=== PATIENT | female | born 1990 | race Caucasian/White ===

== ENCOUNTER 2016-10-02 02:23 | Inpatient (IN) ==
[2016-10-02] MEDS ORDERED: MEPERIDINE 50 MG/1 ML VIAL IV PRN (02:35)
[2016-10-02] MEDS ORDERED: ONDANSETRON 4 MG/2 ML VIAL IV PRN ×2 (02:35→19:12)
[2016-10-02] MEDS ORDERED: BUTORPHANOL 2 MG/ML VIAL IV PRN (02:35)
[2016-10-02] MEDS ORDERED: ACETAMINOPHEN 325 MG TABLET PO PRN ×2 (02:35→19:12)
[2016-10-02] MEDS ORDERED: AMPICILLIN INJ 2,000 MG in SODIUM CHLORIDE 0.9% 100 ML IV ONE (02:48)
[2016-10-02] MEDS: LACTATED RINGERS 1,000 ML IV SCH ×3 (03:00→10:04)
[2016-10-02 03:08] LABS: Basophils % 0.2 % (0.0-0.8); Eosinophils # 0.1 10*3/uL (0.0-0.87); Eosinophils % 0.9 % (0.00-10.9); Hematocrit 28.3 VOL% (35.7-47.0); Hemoglobin 9.7 GM/DL (12.0-16.0); Immature Granulocytes % 0.9 %; Immature Granulocytes Absolute 0.07 #; Lymphocytes # 2.2 10*3/uL (1.4-4.0); Lymphocytes % 27.5 % (21.3-54.2); Mean Corpuscular HGB Conc 34.3 GM/DL (32-36); Mean Corpuscular Hemoglobin 29 PG (27-34); Mean Corpuscular Volume 83.2 FL (87-102); Monocytes # 0.6 10*3/uL (0.11-0.8); Monocytes % 6.8 % (1.7-12.7); Neutrophils # 5.1 10*3/uL (1.4-7.4); Neutrophils % 63.7 % (38.7-73.9); Platelet Count 190 T/CUMM (130-400); Red Cell Distribution Width 12.1 % (9.3-17.3)
[2016-10-02] MEDS ORDERED: PROMETHAZINE 25 MG/1 ML VIAL IM PRN (05:21)
[2016-10-02] MEDS ORDERED: ePHEDrine 50 MG/ML AMP IV PRN (05:21)
[2016-10-02] MEDS ORDERED: diphenhydrAMINE 50 MG/1 ML VIAL IV PRN ×2 (05:21)
[2016-10-02] MEDS ORDERED: hydrOXYzine HCL 25 MG/1 ML VIAL IM PRN (05:21)
[2016-10-02] MEDS ORDERED: FAMOTIDINE 20 MG/2 ML VIAL IV PRN (05:23)
[2016-10-02] MEDS ORDERED: CITRIC ACID/SODIUM CITRATE 30 ML UDCUP PO PRN (05:23)
[2016-10-02] MEDS ORDERED: fentaNYL 2 MCG/ROPIV 0.2% EPID 150 ML EPIDURAL SCH (06:30)
[2016-10-02] MEDS ORDERED: AMPICILLIN INJ 1,000 MG in SODIUM CHLORIDE 0.9% 100 ML IV SCH (07:00)
[2016-10-02 09:51] LABS: Apearance,Urine CLEAR (Clear); Bilirubin,Urine Negative (Negative); Blood, Urine Negative (Negative); Glucose,Urine (UA) Negative (Negative); Ketones,Urine 20 mg/dL (Negative); Mucus,Urine Occasional /LPF (Occasional); Nitrite,Urine Negative (Negative); Protein,Urine Negative; RBC,Urine 1 /HPF (0-4); Squamous Epithelial Cell,Urine Occasional /HPF (0-10); Urine Color Yellow (Yellow); Urine Specific Gravity 1.011 (1.001-1.035); Urine Urobilinogen < 2.0 EU/DL (0.2-1.0); WBC,Urine 1 /HPF (0-6)
[2016-10-02] MEDS ORDERED: OXYTOCIN/LR 20 UNIT/1,000 ML BAG IV SCH (11:00)
[2016-10-02] MEDS ORDERED: miSOPROStol 200 MCG TABLET ONE (18:54)
[2016-10-02] MEDS ORDERED: LIDOCAINE 1% 50 ML VIAL ONE (18:54)
[2016-10-02] MEDS ORDERED: oxyCODONE/ACETAMINOPHEN 5-325 MG TABLET PO PRN ×2 (19:12)
[2016-10-02] MEDS ORDERED: BENZOCAINE 20%/MENTHOL 0.5% SPRAY 56 GM CAN TOP PRN (19:12)
[2016-10-02] MEDS ORDERED: WITCH HAZEL PADS 100/JAR TOP PRN (19:12)
[2016-10-02] MEDS ORDERED: IBUPROFEN 800 MG TABLET PO PRN (19:12)
[2016-10-02] MEDS ORDERED: OXYTOCIN/LR 20 UNIT/1,000 ML BAG IV ONE (19:12)
[2016-10-02] MEDS ORDERED: MEASLES/MUMPS/RUBELLA VACCINE 0.5 ML VIAL SUBCUT ONE (19:12)
[2016-10-02] MEDS ORDERED: HYDROCORTISONE 2.5% RECTAL CREAM 30 GM TUBE TOP PRN (19:12)
[2016-10-02] MEDS ORDERED: RHO(D) IMMUNE GLOBULIN 300 MCG SYRINGE IM ONE (19:12)
[2016-10-02] MEDS ORDERED: DIPH/TET/ACEL PERT BOOSTER VACCINE 0.5 ML VIAL IM ONE (19:12)
[2016-10-02] MEDS ORDERED: BISACODYL 10 MG SUPP RECTAL PRN (19:12)
[2016-10-02] MEDS ORDERED: LANOLIN 50% CREAM 0.3 OZ TUBE TOP PRN (19:12)
--- NOTE | 2016-10-02 19:16 | History and Physical Update ---
History and Physical Update - Dictation Physical: refer to scanned H&P - Physical Exam Mental Status: alert and oriented Heart: regular rate and rhythm Lung: clear to auscultation Abdomen: within normal limits Vitals: within normal limits History and Physical Changes: 36weeks with SROM very early this morning. No prior complications. GBS negative.
--- NOTE | 2016-10-02 19:20 | Operative Note ---
Date of procedure: 10/02/16 Pre-op diagnosis: 36 wks, PROM Post-op diagnosis: same Procedure: Vacuum-assisted vaginal delivery Patient progressed to complete and pushing with labor epidural and Pitocin augmentation and delivered a viable female over intact perineum and a 1st degree left distal vaginal laceration that was hemostatic. Vacuum was applied to vertex p discussion of BRCA due to maternal discomfort and prolonged bradycardia. Vacuum was applied through one push and head was easily delivered with minimal to moderate traction. Tight nuchal cord had to be clamped and cut then the baby was immediately delivered. Baby was taken directly to the [facility] to care of personnel. Cord blood was collected and placenta was delivered intact. Fundus is firm. Estimated blood loss 300 mL. Complications none. Patient is stable and the baby is stable. Anesthesia: epidural Surgeon / Physician: Ev Taylor Estimated blood loss: other (300cc) Specimens: other (placenta to path; cord blood to lab) Condition: stable Disposition: no change Results - Labs CBC & BMP: 10/02/16 02:54 Discharge Plan - Discharge Medications No Action Sertraline [Zoloft] 1 tablet PO DAILY Levothyroxine Tab [Synthroid Tab] 1 tablet PO DAILY No122/Iron/Folic Acid [ Multi Tablet] 1 tablet PO DAILY Cetirizine HCl [ZyrTEC Cap] 1 tablet PO DAILY - Follow Up or Referral - Forms/Instructions
--- NOTE | 2016-10-02 19:41 | Anesthesia Post-Op ---
Anesthesia Post OP - Post Ansesthetic Evaluation Patient seen in post op: Yes Resp: within normal limits CV: within normal limits Mental: within normal limits Temp: within normal limits [id number]: within normal limits Nausea and Vomiting: within normal limits Pain: within normal limits
[2016-10-03 05:03] LABS: Basophils % 0.2 % (0.0-0.8); Eosinophils % 0.1 % (0.00-10.9); Hematocrit 26.6 VOL% (35.7-47.0); Immature Granulocytes % 0.6 %; Immature Granulocytes Absolute 0.08 #; Lymphocytes # 2.3 10*3/uL (1.4-4.0); Lymphocytes % 16.3 % (21.3-54.2); Mean Corpuscular HGB Conc 33.8 GM/DL (32-36); Mean Corpuscular Hemoglobin 29 PG (27-34); Mean Corpuscular Volume 84.7 FL (87-102); Monocytes % 7.2 % (1.7-12.7); Neutrophils # 10.8 10*3/uL (1.4-7.4); Neutrophils % 75.6 % (38.7-73.9); Platelet Count 186 T/CUMM (130-400); Red Blood Count 3.14 MC/CUMM (3.8-5.5); Red Cell Distribution Width 12.2 % (9.3-17.3); White Blood Count 14.3 T/CUMM (4-12)
--- NOTE | 2016-10-03 08:16 | OB/GYN Progress Note ---
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 - Constitutional Vitals: Vital Signs Temp Pulse Resp BP Pulse Ox 10/03/16 07:19 97.4 F L 92 H 20 115/61 98 10/03/16 06:00 18 10/03/16 04:00 97.6 F 78 18 123/51 97 10/03/16 02:00 18 10/03/16 00:13 97.6 F 88 20 127/72 98 10/02/16 23:30 98.5 F 98 H 18 128/65 98 10/02/16 22:30 98 H 20 125/65 10/02/16 22:00 88 20 143/78 10/02/16 21:30 98.3 F 79 20 138/71 97 General appearance: normal weight, no acute distress - Head Head exam: Present: normal inspection, normocephalic - Eye Eye exam: Present: EOMI - Respiratory Respiratory exam: Present: clear to auscultation bilaterally - Cardiovascular Cardiovascular exam: Present: regular rate and rhythm - GI/Abdominal GI/Abdominal exam: Present: soft (fundus firm, nontender) - Extremities Exam Extremities exam: Present: normal inspection - Neurological Exam Neurological exam: Present: alert, oriented X3 - Psychiatric Psychiatric exam: Present: normal affect, normal mood - Skin Skin exam: Present: normal color, warm Results - Labs CBC & BMP: 10/03/16 04:47 Lab Results: I have reviewed the past 24 hour labs
[2016-10-03] MEDS: DOCUSATE SODIUM 100 MG CAPSULE PO SCH ×2 (09:24→22:26)
[2016-10-03] MEDS ORDERED: RHO(D) IMMUNE GLOBULIN 300 MCG SYRINGE IM ONE (15:45)
[2016-10-04 07:44] VITALS: BP 118/50
[2016-10-04] MEDS: DOCUSATE SODIUM 100 MG CAPSULE PO SCH (09:13)
--- NOTE | 2016-10-07 12:19 | Pathology Report from [facility] ---
[facility] ACCESSION # : [id number] PATIENT NAME : Beba James ORDERING DR : FERNANDO MILLER DO CLINICAL HX: IUP 36 weeks - SRM - tachycardia - Nuchal cord x 2 POST-OP DX: Same SPECIMEN INFO: Placenta GROSS DESCRIPTION: The specimen is received in formalin labeled with the patients name BEBA JAMES and consists of a 427 gram placenta which measures 17.0 x 17.0 x 2.2 cm. membranes are pink-pride and translucent. The umbilical cord measures 30.0 cm, contains three vessels and is inserted 3.0 cm from the placental margin. The surface is blue-burkett and intact. The maternal surface is hemorrhagic and mildly disrupted with a few scattered calcifications seen. Sectioning reveals no gross abnormalities. Sections submitted: A membranes and cord, B and maternal surfaces. DIAGNOSIS FOR BEBA JAMES: PLACENTA, 36 WEEKS, VAGINAL DELIVERY: Mature placenta, 427 grams. Unremarkable membranes. Trivascular umbilical cord, 30 cm in length. COLLECTED DATE: 10/04/2016 [facility] REPORT DATE: 10/07/2016 ELECTRONICALLY SIGNED BY: Charlene Rodriguez M.D. 10/07/2016 - 11:01:06 SANDOVAL
== END 2016-10-04 13:45 | disposition home or self-care (01) | DRG 775 ==
LOC: N.LDOUT 02:23 → N.LD 02:29 → N.OB 21:11
PROVIDERS: ADMIT Obstetrics & Gynecology; ATTEND Obstetrics & Gynecology

== ENCOUNTER 2016-10-06 21:48 | Inpatient (IN) ==
[2016-10-06] MEDS ORDERED: ALBUTEROL/IPRATROPIUM 3 ML NEB RESP TX STA (22:54)
[2016-10-06] MEDS ORDERED: MORPHINE 2 MG/1 ML SYRINGE IV STA (22:54)
[2016-10-06] MEDS ORDERED: methylPREDNISolone SOD SUC 125 MG/2 ML VIAL IV STA (22:54)
[2016-10-06] MEDS ORDERED: ONDANSETRON 4 MG/2 ML VIAL IV STA (22:54)
[2016-10-06] MEDS ORDERED: FUROSEMIDE 100 MG/10 ML VIAL IV STA (22:54)
[2016-10-06] MEDS ORDERED: ASPIRIN 325 MG TABLET PO STA (22:54)
[2016-10-06 23:00] LABS: Basophils % 0.2 % (0.0-0.8); Eosinophils # 0.3 10*3/uL (0.0-0.87); Eosinophils % 3.1 % (0.00-10.9); Hematocrit 26.7 VOL% (35.7-47.0); Hemoglobin 8.9 GM/DL (12.0-16.0); Immature Granulocytes % 0.8 %; Immature Granulocytes Absolute 0.07 #; Lymphocytes # 1.7 10*3/uL (1.4-4.0); Lymphocytes % 20.4 % (21.3-54.2); Mean Corpuscular HGB Conc 33.3 GM/DL (32-36); Mean Corpuscular Hemoglobin 28 PG (27-34); Mean Corpuscular Volume 84.8 FL (87-102); Mean Platelet Volume 9.5 FL (9.6-12.0); Monocytes # 0.6 10*3/uL (0.11-0.8); Monocytes % 7.2 % (1.7-12.7); Neutrophils # 5.6 10*3/uL (1.4-7.4); Neutrophils % 68.3 % (38.7-73.9); Platelet Count 242 T/CUMM (130-400); Red Blood Count 3.15 MC/CUMM (3.8-5.5); Red Cell Distribution Width 12.4 % (9.3-17.3); White Blood Count 8.3 T/CUMM (4-12)
[2016-10-06 23:08] LABS: D-Dimer 2.2 MG/L FEU; PT Patient Result 10.2 SECS
[2016-10-06] MEDS ORDERED: FUROSEMIDE 40 MG/4 ML VIAL ONE (23:08)
[2016-10-06] MEDS ORDERED: ONDANSETRON 4 MG/2 ML VIAL ONE (23:08)
[2016-10-06] MEDS ORDERED: MORPHINE 2 MG/1 ML SYRINGE ONE (23:09)
[2016-10-06] MEDS ORDERED: ASPIRIN 325 MG TABLET ONE (23:09)
[2016-10-06] MEDS ORDERED: FUROSEMIDE 20 MG/2 ML VIAL ONE (23:09)
[2016-10-06] MEDS ORDERED: methylPREDNISolone SOD SUC 125 MG/2 ML VIAL ONE (23:09)
[2016-10-06 23:34] LABS: Alanine Aminotransferase 33 U/L (13-56); Albumin 2.4 G/DL (3.4-5.0); Alkaline Phosphatase 74 U/L (45-117); Aspartate Amino Transferase 32 U/L (0-37); Bilirubin,Total < 0.39 MG/DL (0.2-1.0); Blood Urea Nitrogen 6 MG/DL (7-18); Calcium 8.3 MG/DL (8.5-10.1); Glucose 81 MG/DL (74-106); Magnesium 1.6 MG/DL (1.8-2.4); Osmolality,Calculated 277.3 MOS/KG (273-304); Potassium 3.4 MMOL/L (3.5-5.1); Sodium 141 MMOL/L (136-145); Total Protein 5.5 G/DL (6.4-8.3); Troponin I Only 0.018 NG/ML (0.00-0.045)
[2016-10-06 23:34] LABS: ABG Base Excess -1.6 MMOL/L (-2.5-2.5); ABG Oxygen Saturation 97.4 % (95-100); ABG PCO2 24.1 MM HG (35-48); ABG PH 7.537 (7.35-7.45); ABG PO2 103.8 MM HG (80-95); ABG TCO2 20.7 MMOL/L (23-27)
[2016-10-06] MEDS ORDERED: MAGNESIUM SULF RIDER 2 GM in PREMIX 1 EACH IV STA (23:36)
[2016-10-06] MEDS ORDERED: MAGNESIUM SULF RIDER 50 ML IV ONE (23:46)
[2016-10-07 00:09] LABS: Apearance,Urine Slightly Hazy (Clear); Bacteria,Urine Occasional /HPF (Few); Bilirubin,Urine Negative (Negative); Blood, Urine Large mg/dL (Negative); Glucose,Urine (UA) Negative (Negative); Hyaline Casts,Urine 3 /LPF (0-3); Ketones,Urine Negative (Negative); Mucus,Urine Occasional /LPF (Occasional); Nitrite,Urine Negative (Negative); Protein,Urine Negative; RBC,Urine 134 /HPF (0-4); Squamous Epithelial Cell,Urine Occasional /HPF (0-10); Urine Color Straw (Yellow); Urine Specific Gravity 1.004 (1.001-1.035); Urine Urobilinogen < 2.0 EU/DL (0.2-1.0); WBC,Urine 67 /HPF (0-6)
[2016-10-07] MEDS ORDERED: POTASSIUM CHLORIDE 20 MEQ TABLET PO STA (00:40)
--- NOTE | 2016-10-07 00:49 | Emergency Department Note ---
Brijesh Ziegler Brittany, am scribing for, and in the presence of, Anant Berger MD 23:01. Celine Ziegler Charles R, MD, personally performed the services described in this documentation, ascribed by Sherine Coley in my presence, and it is both accurate and complete . Arrival - Arrival Chief Complaint: Shortness of Breath Stated Complaint: SOB/CP/HAD 4 DAYS ED Nursing Triage Note: C/O SOB WITH COUGH WITH ONSET 2-3 DAYS AGO. PT IS 4 DAYS POST . PT HAS NOT CONTACTED DR MILLER. Mode of Arrival: Ambulatory Limitations: No Limitations Source: Patient, Family Time Seen by Provider: 10/06/16 22:12 - History of Present Illness HPI Narrative: This is a 26 y/o white female,who presents to the ED with c/o CP and SOB which started 3 days ago. She states she is 4 days post-. She reports the vaginal delivery was normal. Pt reports the chest pain and SOB started 1 day after giving . She notes a cough. Pt has no other complaints/pain in the ED at this time. Pt has a PMHx of anxiety and thyroid disorder. Pt has had a tonilectomy. Pt has a afmily medical Hx of diabetes, heart disease, and HTN. Pt denies a social Hx. Onset (ago): day(s) (Started 3 days ago) Consistency: constant Severity: moderate Date of Last Menstrual Period: 4 DAYS POST Allergies/Adverse Reactions: Allergies Allergy/AdvReac Type Severity Reaction Status Date / Time No Known Allergies Allergy Verified 10/02/16 02:35 Home Medications: Home Medications Medication Instructions Recorded Confirmed Type Cetirizine HCl [ZyrTEC Cap] 1 tablet PO DAILY 10/02/16 10/02/16 History Levothyroxine Tab [Synthroid Tab] 1 tablet PO DAILY 10/02/16 10/02/16 History No122/Iron/Folic Acid 1 tablet PO DAILY 10/02/16 10/02/16 History [ Multi Tablet] Sertraline [Zoloft] 1 tablet PO DAILY 10/02/16 10/02/16 History Review of System - Review of System 12 point system: reviewed and no additional remarkable complaints except as stated - Review of System Respiratory: Present: cough Cardiovascular: Present: chest pain, dyspnea on exertion Medical,Surgical,& Family Hx - Medical History Psychological: History of: Anxiety Disorders Endocrine: History of: Thyroid Disorder Reproductive: No history of: Ectopic , Complication - Surgical History HEENT Surgeries: Surgical HX of: Tonsilectomy & Adenoidectomy Reproductive Surgeries: Patient denies;: Section - Family History Family History: Reports;: Family Diabetes (FATHER), Family Heart Disease (FATHER ), Family Hypertension (MOM) Denies;: Family Anesthesia Reaction, Family Cancer, Family Psychiatric Problems, Family Stroke - Social History Smoking Status: Never smoker Frequency of Alcohol Use: None Type of Drug Use: None Exam Vital Signs: Vital Signs Temperature 98 F 10/06/16 22:20 Pulse Rate 97 H 10/06/16 23:30 Respiratory Rate 20 10/06/16 23:30 Blood Pressure 133/83 10/06/16 22:20 O2 Sat by Pulse Oximetry 100 10/06/16 23:30 - General General appearance: alert, in no apparent distress - Head Head exam: Present: atraumatic, normocephalic, normal inspection - Eye Eye exam: Present: normal appearance, PERRL, EOMI. Absent: nystagmus, miosis, mydriasis - ENT ENT exam: Present: normal exam, normal oropharynx, mucous membranes moist, TM's normal bilaterally, normal external ear exam - Neck Neck exam: Present: normal inspection, full ROM, trachea midline. Absent: tenderness, meningismus, lymphadenopathy, thyromegaly - Chest Chest inspection: Present: normal inspection, symmetric chest wall rise. Absent : tenderness, rash, abscess - Respiratory Respiratory exam: Present: rales (Bilateral Rales at the base), wheezes ( Bilateral wheezing at the base ) - Cardiovascular Cardiovascular exam: Present: regular rate, normal rhythm, normal heart sounds. Absent: murmur, rubs, gallop, clicks, JVD - Abdominal Exam Abdominal exam: Present: soft, normal bowel sounds. Absent: distention, tenderness, guarding, rebound, rigidity - Rectal Exam Rectal exam: Present: deferred - Extremities Exam Extremities exam: Present: normal inspection, full ROM, normal capillary refill. Absent: tenderness, pedal edema, joint swelling, calf tenderness - Back Exam Back exam: Present: normal inspection, full ROM. Absent: tenderness, muscle spasm, rashes - Neurological Exam Neurological exam: Present: alert, oriented X3, CN II-XII intact. Absent: motor sensory deficit - Psychiatric Psychiatric exam: Present: normal affect, normal mood. Absent: depressed, agitated, anxious, flat affect, manic - Skin Skin exam: Present: warm, dry, intact, normal color. Absent: rash, cyanosis, diaphoresis, erythema, pallor, mottled Course - Consultations Consultation #1: Dr. Hernandez taking call for Dr. Miller will admit patient Time: 00:49 Results - Labs CBC & BMP: 10/06/16 22:24 10/06/16 22:24 - Diagnostic Findings Procedure: CT - chest: image reviewed by me, report reviewed by me (CT chest pleural effusions versus pneumonia bilaterally) Critical Care Time Critical Care Time: Yes Total Critical Care Time: 60 Disposition Clinical Impression: 4 days, Pleural effusion, Bilateral pneumonia, Acute dyspnea, Anemia Case discussed with: patient, patient's family Disposition: Still a Patient Condition: Stable Time of Disposition: 00:49
[2016-10-07] MEDS: cefTRIAXone 1,000 MG in SODIUM CHLORIDE 0.9% 100 ML IV STA ×2 (00:53→02:40)
[2016-10-07] MEDS ORDERED: cefTRIAXone 1,000 MG VIAL ONE (00:55)
[2016-10-07] MEDS ORDERED: POTASSIUM CHLORIDE 20 MEQ TABLET PO ONE (00:55)
[2016-10-07] MEDS ORDERED: IBUPROFEN 800 MG TABLET PO PRN (03:15)
[2016-10-07] MEDS ORDERED: ALBUTEROL/IPRATROPIUM 3 ML NEB RESP TX PRN (03:15)
[2016-10-07] MEDS ORDERED: SODIUM CHLORIDE 0.9% 1,000 ML IV SCH (03:15)
[2016-10-07] MEDS ORDERED: BISACODYL 10 MG SUPP RECTAL PRN (03:15)
[2016-10-07] MEDS ORDERED: MORPHINE 2 MG/1 ML SYRINGE IV PRN (03:15)
[2016-10-07] MEDS ORDERED: MAGNESIUM HYDROXIDE SUSP 30 ML UDCUP PO PRN (03:15)
[2016-10-07] MEDS ORDERED: ONDANSETRON 4 MG/2 ML VIAL IV PRN (03:15)
[2016-10-07] MEDS ORDERED: ACETAMINOPHEN 325 MG TABLET PO PRN (03:15)
--- NOTE | 2016-10-07 03:16 | EKG Report ---
Stationary ECG Study [facility] ER Test Date: 10/06/2016 10:03:32 PM Pat Name: ZEINAB JAMES Department: Room: [facility] Gender: F Cotton Tipper: Juan José : 1990 Requested by: Anant Max Order Number: [id number] Reading MD: KELLIE URIBE Intervals [place] Rate: 80 P: -8 NM: 125 QRS: 66 QRSD: 87 T: 53 QT: 364 QTc: 400 Interpretive Statements SINUS RHYTHM RSR (QR) IN V1/V2 CONSISTENT WITH RIGHT VENTRICULAR CONDUCTION DELAY Electronically Signed On 10-07-16 05:44:54 CDT by KELLIE URIBE [email or web address]
[2016-10-07 06:43] LABS: Basophils % 0.1 % (0.0-0.8); Eosinophils % 0.1 % (0.00-10.9); Hematocrit 27.9 VOL% (35.7-47.0); Hemoglobin 9.6 GM/DL (12.0-16.0); Immature Granulocytes % 2.2 %; Lymphocytes # 0.8 10*3/uL (1.4-4.0); Lymphocytes % 9.3 % (21.3-54.2); Mean Corpuscular HGB Conc 34.4 GM/DL (32-36); Mean Corpuscular Hemoglobin 29 PG (27-34); Mean Corpuscular Volume 83.3 FL (87-102); Mean Platelet Volume 9.1 FL (9.6-12.0); Monocytes # 0.2 10*3/uL (0.11-0.8); Monocytes % 1.7 % (1.7-12.7); Neutrophils # 7.8 10*3/uL (1.4-7.4); Neutrophils % 86.6 % (38.7-73.9); Platelet Count 264 T/CUMM (130-400); Red Blood Count 3.35 MC/CUMM (3.8-5.5); Red Cell Distribution Width 12.3 % (9.3-17.3)
[2016-10-07 06:56] LABS: PT Patient Result 10.5 SECS
[2016-10-07 07:15] LABS: Alanine Aminotransferase 36 U/L (13-56); Albumin 2.7 G/DL (3.4-5.0); Alkaline Phosphatase 80 U/L (45-117); Aspartate Amino Transferase 33 U/L (0-37); Bilirubin,Total < 0.39 MG/DL (0.2-1.0); Blood Urea Nitrogen 7 MG/DL (7-18); Calcium 8.6 MG/DL (8.5-10.1); Glucose 120 MG/DL (74-106); Osmolality,Calculated 277.4 MOS/KG (273-304); Potassium 3.6 MMOL/L (3.5-5.1); Sodium 140 MMOL/L (136-145); Total Protein 6.3 G/DL (6.4-8.3)
--- NOTE | 2016-10-07 07:18 | Ultrasound Report ---
History is post extremity swelling Bilateral lower extremity venous Doppler performed with grayscale, spectral Doppler, and color flow analysis performed and interpreted. No evidence of echogenic, noncompressible thrombus seen in either common femoral, superficial femoral, popliteal, or saphenous veins Impression: No evidence of DVT seen in either lower extremity. PROCEDURE INTERPRETED AT [facility] DEPARTMENT OF RADIOLOGY Final Report Signed by: Dr. Hali Christensen
[2016-10-07 07:22] LABS: Free T4 (Free Thyroxine) 1.34 NG/DL (0.76-1.46); Thyroid Stimulating Hormone 2.42 uIU/ml (0.358-3.74)
--- NOTE | 2016-10-07 07:37 | CT Report ---
History is post short of breath The cc Omni 350 utilized Axial images obtained with 2-D multiplanar reconstruction images also stored and interpreted Findings: No enlarged mediastinal or hilar nodes seen. No persistent filling defects seen in the pulmonary arteries There are small right and tiny left pleural effusions There are mild patchy bilateral groundglass pulmonary opacities Impression: 1. Mild patchy groundglass bilateral infiltrates versus edema. Amniotic fluid embolus could give a similar appearance. Clinical correlation requested The CT exam was performed using one or more of the following dose reduction techniques: Automated exposure control, adjustment of the mA and/or kV according to patient size, or use of iterative reconstruction technique. PROCEDURE INTERPRETED AT [facility] DEPARTMENT OF RADIOLOGY Final Report Signed by: Dr. Hali Christensen
--- NOTE | 2016-10-07 07:44 | XRay Report ---
Exam: XR chest 2V Indication: Shortness of breath Comparison study: None Findings: The heart, mediastinum, and bony structures are within normal limits. Diffuse mild perihilar interstitial opacities are noted bilaterally suggestive of pulmonary edema changes. No definite focal consolidation is identified. There is pneumothorax or pleural effusion identified. Impression: Prominent perihilar interstitial opacities may represent pulmonary edema changes or bilateral interstitial infiltrates. PROCEDURE INTERPRETED AT [facility] DEPARTMENT OF RADIOLOGY Final Report Signed by: Brandon Hammond
--- NOTE | 2016-10-07 08:04 | XRay Report ---
Exam: XR chest 2V Indication: Pleural effusion Shortness of breath Comparison study: Prior chest 10/06/2016 Findings: The heart, mediastinum and bony structures are stable from prior. Similar perihilar and basilar interstitial opacities with minimal peribronchial thickening is noted. There is now blunting of the right costophrenic angle with right basilar opacities slightly increased from prior. There is no pneumothorax. Impression: Increase in right basilar opacities and blunting the right costophrenic angle suspicious for atelectasis and small pleural effusion. Residual perihilar opacities are suspicious for underlying bronchitis or other viral/atypical infectious/inflammatory process. PROCEDURE INTERPRETED AT [facility] DEPARTMENT OF RADIOLOGY Final Report Signed by: Brandon Hammond
[2016-10-07] MEDS: FUROSEMIDE 40 MG/4 ML VIAL IV SCH ×2 (08:19→15:55)
[2016-10-07] MEDS: PANTOPRAZOLE 40 MG VIAL IV SCH (08:23)
[2016-10-07] MEDS: DOCUSATE SODIUM 100 MG CAPSULE PO SCH ×3 (08:31→22:02)
[2016-10-07] MEDS: ENOXAPARIN 40 MG/0.4 ML SYRINGE SUBCUT SCH (09:39)
[2016-10-07] MEDS: LEVOTHYROXINE 88 MCG TABLET PO SCH (09:41)
--- NOTE | 2016-10-07 11:15 | Pulmonology Consult Note ---
History of Present Illness Chief complaint: SOB History of present illness: Hira Del Angel, [facility], acting as scribe for Dr. Garcia Kim Mrs. Stone is a 26-year-old white female who we have been asked to see in pulmonary consultation for evaluation and treatment. The request for consultation was made by Dr. Berger. Mrs. Stone presented to [facility] emergency room last night with complaints of increased shortness of breath and chest pain which started 3 days ago. Patient is now 5 days . She had a normal vaginal delivery. In the emergency room, she reported the chest pain or shortness of breath started 1 day after giving . During her workup, CT of the chest showed mild patchy groundglass bilateral infiltrates versus edema. She was, therefore, admitted to Dr. Taylor for further evaluation and care. Patient was seen today along with her . She has had increasing shortness of breath and dyspnea on exertion as above. She denies any cardiac angina or palpitations. No dysphasia or reflux. No change in bowel or bladder habits. No TIA symptoms or syncope. She does report that recently her legs were "huge", but this is now resolved. All other systems were reviewed and were negative. Allergies: None Home medications: See list Hospital medications: See list Past medical history: Positive for anxiety, hypothyroidism, and allergic rhinitis. Surgical history: History of tonsillectomy and adenoidectomy. Again as stated above, the patient had a recent vaginal delivery that was normal. Family history: Positive for diabetes and heart disease in her father and hypertension in her mother. 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 She is . She does not use alcohol or tobacco. Chest x-ray. Done 10/07/2016. My interpretation. Increased bilateral perihilar markings most likely consistent with acute congestive heart failure. CT of the chest done 10/06/2016 showed mild patchy groundglass bilateral infiltrates versus edema. Amniotic fluid embolus can give a similar appearance. Clinical correlation requested. Doppler venograms done 10/07/2016 showed no evidence of DVT in either lower extremity. Laboratory: White count is 9000 with 86.6% segs, 9.3% lymphs, and 1.7% monos; H& H 9.6/27.9 with low to low normal indices and normal red blood cell distribution width; platelet count 264,000; INR 1.0; d-dimer 2.2; creatinine 0.60, BUN 7, sodium 140, potassium 3.6, magnesium 2.2; liver function tests within normal limits; BNP at admission 500; calcium 8.6, albumin 2.7, total protein 6.3; TSH and free T4 normal at 2.420 and 1.34 respectively; urinalysis showed large leukocytes with 67 WBCs and occasional bacteria. Urine culture is pending. ABGs done 10/06/2016 on a listed FiO2 of 28% showed a pH of 7.537, PCO2 24.1, PO2 103.8, bicarb 20.0, and oxygen saturation 97.4%. Home Medications Medication Instructions Recorded Confirmed Type Cetirizine HCl [ZyrTEC Cap] 1 tablet PO DAILY 10/02/16 10/07/16 History Levothyroxine Tab [Synthroid Tab] 1 tablet PO DAILY MDD 88 mcg 10/02/16 History Sertraline [Zoloft] 1 tablet PO DAILY 10/02/16 10/07/16 History Allergies Allergy/AdvReac Type Severity Reaction Status Date / Time No Known Allergies Allergy Verified 10/02/16 02:35 Exam (Pulmonay) H&P - Constitutional Vitals: Period Temp Pulse Resp BP Sys/Howell Pulse Ox Last 24 Hr 97 F-98.0 F 73-98 18-24 133-138/67-98 94-100 Exam: Psych: Oriented x 3; a pleasant and cooperative patient HEENT: Pupils, irises, sclera, conjunctiva, and eyelids are normal. The face is symmetrical without rash or masses. Lips, tongue, buccal mucosa, soft and hard palates, and pharynx are WNL Neck: Symmetrical. Thyroid was not palpated. Lymphatics: No submandibular, cervical, or supraclavicular adenopathy Chest: Symmetrical without wheeze, rhonchi or rales Breasts: Deferred CV: Regular without murmur, rub, or gallop Arterial: Carotids with a good upstroke. There is no bruit. Upper extremity pulses are palpable. Lower extremity pulses are palpable. Venous: Exam of the neck, upper, and lower extremities is normal Abd: No appreciable organomegaly, masses, tenderness, or bruit; Bowel sounds are positive 4; The aorta was not palpated /Rectal: Deferred Extremities: No clubbing, cyanosis, edema, or obvious DVT; note, Doppler venograms were negative Skin: No cancerous or infectious lesions of the exposed, examined skin; the perineal area was not examined M/S: Age appropriate loss of the normal curvature of the cervical, thoracic, and lumbar spine Neurological: Cranial nerves are intact, Long tract motor function is intact; Sensory exam was not done; gait was not tested. The remainder of the exam was noncontributory. Impression: #1: Acute shortness of breath most likely secondary to acute congestive heart failure. Consider other causes. #2: 5 days. Note, vaginal delivery was "normal". #3: Anemia #4: Hypomagnesemia, now corrected #5: History of anxiety #6: Hypothyroidism #7: See past history Plan: #1: I discussed the case with Dr. Taylor. The patient has no cough, no fever, no sputum production. We will continue antibiotics today, but plan on stopping them tomorrow. Neither of us feel at this time there is anything to suggest amniotic emboli. #2: Get echocardiogram. Look for cardiomyopathy. #3: Repeat chest x-ray, BMP, and BNP in the morning #4: We will consult cardiology #5: See orders We appreciate this consult and will follow along with you. Medical,Surgical,& Family Hx - Medical History Psychological: History of: Anxiety Disorders Endocrine: History of: Thyroid Disorder Reproductive: No history of: Ectopic , Complication - Surgical History HEENT Surgeries: Surgical HX of: Tonsilectomy & Adenoidectomy Patient denies: Thyroid Surgery Reproductive Surgeries: Patient denies;: Section - Family History Family History: Reports;: Family Diabetes (FATHER), Family Heart Disease (FATHER ), Family Hypertension (MOM) Denies;: Family Anesthesia Reaction, Family Cancer, Family Psychiatric Problems, Family Stroke, Additional Family History - Social History Smoking Status: Never smoker Frequency of Alcohol Use: None Type of Drug Use: None Results - Labs CBC & BMP: 10/07/16 06:35 10/07/16 06:35
--- NOTE | 2016-10-07 16:02 | ECHO Report ---
Beba Stone Exam Date: 10/07/2016 11:27 Referring Physician: Technologist: bertha Darden ARDMS, RVT Age: 26 Ht (in): 64 Wt (lb): 203 Gender: F Exam [facility]: [facility] Echo Indications: Chest pain, unspecified, Shortness of breath, Post Day 4 BP: 136 / 68 HR: 78 Rhythm: Sinus Technical Quality: IMPRESSIONS Left ventricular ejection fraction is estimated at 55-60 %. Trace mitral valve regurgitation. Trace tricuspid valve regurgitation. MEASUREMENTS (Male / Female) Normal Values 2D ECHO LV Diastolic Diameter PLAX 4.9 cm 4.2 - 5.9 / 3.9 - 5.3 cm LV Systolic Diameter PLAX 3.6 cm LV Fractional Shortening PLAX 25.4 % IVS Diastolic Thickness 0.9 cm 0.6 - 1.0 / 0.6 - 0.9 cm LVPW Diastolic Thickness 0.8 cm 0.6 - 1.0 / 0.6 - 0.9 cm RV Internal Dim ED PLAX 4.0 cm Aortic Root Diameter 2.6 cm LA Systolic Diameter LX 3.0 cm 3.0 - 4.0 / 2.7 - 3.8 cm DOPPLER TR Peak Velocity 345.0 cm/s TR Peak Gradient 47.6 mmHg FINDINGS Left Ventricle Normal left ventricular cavity size. Normal left ventricular wall thickness. Left ventricular ejection fraction is estimated at 55-60 %. Right Ventricle The right ventricle is normal in size and function. Right Atrium The right atrium is normal in size. Left Atrium The left atrium is normal in size. Mitral Valve Morphologically normal mitral valve. Trace mitral valve regurgitation. Aortic Valve Morphologically normal aortic valve without significant sclerosis or stenosis. There is no aortic regurgitation. Tricuspid Valve Morphologically normal tricuspid valve. Trace tricuspid valve regurgitation. Tricuspid regurgitation velocities suggest a PAP of 58 mmHg. Pulmonic Valve Morphologically normal pulmonic valve. Trace pulmonary valve regurgitation. Pericardium Normal pericardium without effusion. Aorta Normal ascending aorta dimension. Marcelo Bedoya (Electronically Signed) Final Date: 07 October 2016 16:01
--- NOTE | 2016-10-07 16:08 | Cardiology Consult Note ---
Assessment and Plan - Time spent with patient Time spent with patient: Greater than 30 minutes (1) Chest pain Status: Resolved Assessment and plan: SEE PLAN OF CARE LISTED BELOW Current Visit: Yes (2) SOB (shortness of breath) Status: Resolved Assessment and plan: SEE PLAN OF CARE LISTED BELOW Current Visit: Yes (3) Status post vaginal delivery Status: Resolved Assessment and plan: SEE PLAN OF CARE LISTED BELOW Current Visit: Yes History of Present Illness - Data of Consult Patient: new to practice Consult date: 10/07/16 Requesting Physician: Ev Taylor - Consult Narrative Reason for consult: CHEST PAIN, SOB History of 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 BEDOYA Ms. Stone, 26WF, without a prior cardiac history. Patient is 4 days , 1 para 1. Patient had a sweet little girl, "Lianne" 1 month early as her water broke prematurely. 6 pound baby girl is doing well. Mother and daughter were discharged home in stable condition. Last evening, patient began to experience a chest "heaviness" located in the center of her chest, shortness of breath and a "crackling sensation" when she took deep breaths. No aggravating factors related to the chest discomfort, no radiation. Unable to write the discomfort on a scale of 1-10. She felt as if she should be evaluated and she returned to the hospital where he she has been housed overnight and was noted to be mildly orthopneic. She received IV Lasix and diuresed a significant amount and her breathing has dramatically improved, chest heaviness resolved. Patient and RN in attendance reports she was extremely edematous during the hospitalization and delivery time. This afternoon, patient has been ambulating without difficulty. No chest pain, heaviness or tightness is noted. EKG does not reveal a significant abnormality , venous ultrasound bilateral lower extremity reveals no DVT. CT chest reveals patchy groundglass bilateral infiltrates versus edema. Echocardiogram was reviewed by Dr. Bedoya with no significant abnormality noted including: EF 55-60 %, no significant valvular abnormality, PAP 58 mmHg. Since admission she is diuresed 2 kg, vital signs are stable. Patient would like to be discharged home today. I spoke with Dr. Marcelo Bedoya , he reviewed echocardiogram and patient's case. He is agreeable to allow patient to be discharged home today with a follow-up appointment with him in approximately 2 weeks. I can move this appointment up sooner should patient not improve or her condition worsen. I discussed this with Ms. Stone and she is agreeable with this plan. I will give patient Lasix 20 mg orally daily for the next 3 days as she is not breast-feeding. ASSESSMENT/PLAN: 1. CHEST PAIN -EKG and echocardiogram revealed relatively normal results. Suspect this may be musculoskeletal or related to volume shifts post delivery given the significant amount of fluid she retained during the later part of her pregancy. Will give Lasix 20mg orally daily for three days. 2. SOB - Echo reveals no significant abnormality, pro BNP elevated at 600. Suspect she was experiencing acute volume overload which has improved with diuresis and should continue to mobilize and normalize over the next several days. I have e-scripted Lasix. 3. POST DELIVERY DAY 4 - continue current plan of care. CC: Ev Taylor DO - Home Medications and Allergies Home Medications: Home Medications Medication Instructions Recorded Confirmed Type Cetirizine HCl [ZyrTEC Cap] 1 tablet PO DAILY 10/02/16 10/07/16 History Levothyroxine Tab [Synthroid Tab] 1 tablet PO DAILY MDD 88 mcg 10/02/16 History Sertraline [Zoloft] 1 tablet PO DAILY 10/02/16 10/07/16 History Furosemide Tab [Lasix Tab] 20 mg PO DAILY #7 tablet 10/07/16 Rx Allergies/Adverse Reactions: Allergies Allergy/AdvReac Type Severity Reaction Status Date / Time No Known Allergies Allergy Verified 10/02/16 02:35 Review of systems: REVIEW OF SYSTEMS: See HPI - Constitutional Constitutional: Denies fatigue. Absent: syncope, anorexia, night sweats - EENT Eyes: Absent: blurry vision, loss of vision, diplopia Ears: Absent: decreased hearing, ear pain, ear discharge - Cardiovascular Cardiovascular: Denies chest pain with exertion, dyspnea on exertion. Edema improved. Denies palpitations. Absent: chest pain with deep breath, claudication - Respiratory Respiratory: Denies GRANDE, cough. Did have some inspiratory crackles and mild orthopnea initially which is resolved. Absent: wheezing, hemoptysis, change in phlegm color - Gastrointestinal Gastrointestinal: Denies: constipation. Absent: hematemesis, hematochezia, melena, change in bowel habits, nausea - Genitourinary Genitourinary: Absent: difficulty urinating, dysuria, urinary hesitancy, flank pain - Musculoskeletal Musculoskeletal: Present: back pain Absent: joint swelling, muscle cramps, muscle weakness - Neurological Neurological: Present: normal gait without frequent falls. Absent: dizziness, hemiparesis - Psychiatric Psychiatric: Absent: anxiety, depression, difficulty concentrating - Endocrine Endocrine: Present: fatigue. Absent: cold intolerance, heat intolerance, polyuria, polyphagia, polydipsia - Hematologic/Lymphatic Hematologic/Lymphatic: Present: easy bruising. Absent: easy bleeding -Integumentary Integumentary: Absent: lesions, rashes, skin breakdown Medical,Surgical,& Family Hx - Medical History Cardio: No history of: Cardiac Dysrhythmia, CAD, Hypertension Psychological: History of: Anxiety Disorders Endocrine: History of: Thyroid Disorder Reproductive: No history of: Ectopic , Complication - Surgical History HEENT Surgeries: Surgical HX of: Tonsilectomy & Adenoidectomy Patient denies: Thyroid Surgery Reproductive Surgeries: Patient denies;: Section - Family History Family History: Reports;: Family Diabetes (FATHER), Family Heart Disease (FATHER ), Family Hypertension (MOM) Denies;: Family Anesthesia Reaction, Family Cancer, Family Psychiatric Problems, Family Stroke, Additional Family History - Social History Smoking Status: Never smoker Have you smoked in the last 12 months: No Frequency of Alcohol Use: None Type of Drug Use: None Marital Status: Lives With:: Spouse Physical Examination Vital Signs Temp Pulse Resp BP Pulse Ox 98.0 F 78 18 138/98 97 10/06/16 21:54 10/06/16 21:54 10/06/16 21:54 10/06/16 21:54 10/06/16 21:54 General: [Appears well with no apparent distress.] [Pleasant and cooperative. ] [Appears comfortable.] HEENT: [PERRL, normocephalic, atraumatic. Mucous membranes moist. No jaundice noted. Conjunctiva moist and clear, sclerae anicteric] Neck: No JVD. No thyromegaly or lymphadenopathy noted. No carotid bruit appreciated Cardiac: [Regular rate and rhythm.] [No obvious murmur rub or gallop.] Lungs: [Clear to auscultation without accessory muscle use to assist the respiratory pattern.] Not requiring oxygen Abdomen: Soft, bowel sounds normoactive. No abdominal bruit or thrill noted. Musculoskeletal: No fluid collection. Decreased range of motion is noted. Extremities: No clubbing, cyanosis noted. [Trace bilateral lower extremity edema noted.] Upper extremity pulses 2+. Lower extremity pulses 2+. Capillary refill less than 3 seconds. Skin: No unusual lesions or rashes. No skin breakdown appreciated. Neuro: Awake, alert and oriented 3. Moves all extremities well without hemiparesis or paralysis. No essential tremor is appreciated. Result/EKG - Labs CBC & BMP: 10/07/16 06:35 10/07/16 06:35 Lab Results: I have reviewed the past 24 hour labs Labs: Laboratory Results - last 24 hr 10/06/16 10/06/16 10/06/16 22:24 22:24 22:24 WBC 8.3 D RBC 3.15 L Hgb 8.9 L Hct 26.7 L MCV 84.8 L MCH 28 MCHC 33.3 RDW 12.4 Plt Count 242 D MPV 9.5 L Neut % (Auto) 68.3 Lymph % (Auto) 20.4 L [place] % (Auto) 7.2 Eos % (Auto) 3.1 Baso % (Auto) 0.2 Neut # (Auto) 5.6 Lymph # (Auto) 1.7 [place] # (Auto) 0.6 Eos # (Auto) 0.3 Baso # (Auto) 0.0 Immature Gran % 0.8 Nucleated RBC % 0.0 Immature Gran # 0.07 Nucleated RBCs # 0.00 INR 1.0 PT Patient/Control Mix 10.2 D-Dimer, Quantitative 2.2 ABG pH ABG pCO2 ABG pO2 ABG HCO3 ABG Total CO2 ABG O2 Saturation ABG Base Excess FiO2 Sodium Potassium Chloride Carbon Dioxide Anion Gap BUN Creatinine GFR Calculation BUN/Creatinine Ratio Glucose Calculated Osmolality Calcium Magnesium Total Bilirubin AST ALT Alkaline Phosphatase Troponin I B-Natriuretic Peptide Total Protein Albumin Globulin Albumin/Globulin Ratio Free T4 TSH 3rd Generation Urine Color Straw Urine Appearance Slightly hazy Urine pH 7.0 Ur Specific [place] 1.004 Urine Protein Negative Urine Glucose (UA) Negative Urine Ketones Negative Urine Blood Large Urine Nitrate Negative Urine Bilirubin Negative Urine Urobilinogen < 2.0 H Urine Leukocytes Large H Urine RBC 134 Urine WBC 67 Urine WBC Clumps Occasional Ur Squamous Epith Cells Occasional Urine Bacteria Occasional Hyaline Casts 3 Urine Mucus Occasional Ur Culture Indicated? Results to follow Blood Type Antibody Screen Antibody Identification 10/06/16 10/06/16 10/06/16 22:24 22:24 23:35 WBC RBC Hgb Hct MCV MCH MCHC RDW Plt Count MPV Neut % (Auto) Lymph % (Auto) [place] % (Auto) Eos % (Auto) Baso % (Auto) Neut # (Auto) Lymph # (Auto) [place] # (Auto) Eos # (Auto) Baso # (Auto) Immature Gran % Nucleated RBC % Immature Gran # Nucleated RBCs # INR PT Patient/Control Mix D-Dimer, Quantitative ABG pH 7.537 H ABG pCO2 24.1 L ABG pO2 103.8 H ABG HCO3 20.0 ABG Total CO2 20.7 L ABG O2 Saturation 97.4 ABG Base Excess -1.6 FiO2 28.00 Sodium 141 Potassium 3.4 L Chloride 109 H Carbon Dioxide 22 Anion Gap 13.4 BUN 6 L Creatinine 0.60 GFR Calculation 146 BUN/Creatinine Ratio 10.00 Glucose 81 Calculated Osmolality 277.3 Calcium 8.3 L Magnesium 1.6 L Total Bilirubin < 0.39 AST 32 ALT 33 Alkaline Phosphatase 74 Troponin I 0.018 B-Natriuretic Peptide 500 H Total Protein 5.5 L Albumin 2.4 L Globulin 3.1 Albumin/Globulin Ratio 0.7 L Free T4 TSH 3rd Generation Urine Color Urine Appearance Urine pH Ur Specific [place] Urine Protein Urine Glucose (UA) Urine Ketones Urine Blood Urine Nitrate Urine Bilirubin Urine Urobilinogen Urine Leukocytes Urine RBC Urine WBC Urine WBC Clumps Ur Squamous Epith Cells Urine Bacteria Hyaline Casts Urine Mucus Ur Culture Indicated? Blood Type Antibody Screen Antibody Identification 10/07/16 10/07/16 10/07/16 06:35 06:35 06:35 WBC RBC Hgb Hct MCV MCH MCHC RDW Plt Count MPV Neut % (Auto) Lymph % (Auto) [place] % (Auto) Eos % (Auto) Baso % (Auto) Neut # (Auto) Lymph # (Auto) [place] # (Auto) Eos # (Auto) Baso # (Auto) Immature Gran % Nucleated RBC % Immature Gran # Nucleated RBCs # INR 1.0 PT Patient/Control Mix 10.5 D-Dimer, Quantitative ABG pH ABG pCO2 ABG pO2 ABG HCO3 ABG Total CO2 ABG O2 Saturation ABG Base Excess FiO2 Sodium Potassium Chloride Carbon Dioxide Anion Gap BUN Creatinine GFR Calculation BUN/Creatinine Ratio Glucose Calculated Osmolality Calcium Magnesium Total Bilirubin AST ALT Alkaline Phosphatase Troponin I B-Natriuretic Peptide Total Protein Albumin Globulin Albumin/Globulin Ratio Free T4 1.34 TSH 3rd Generation 2.420 Urine Color Urine Appearance Urine pH Ur Specific [place] Urine Protein Urine Glucose (UA) Urine Ketones Urine Blood Urine Nitrate Urine Bilirubin Urine Urobilinogen Urine Leukocytes Urine RBC Urine WBC Urine WBC Clumps Ur Squamous Epith Cells Urine Bacteria Hyaline Casts Urine Mucus Ur Culture Indicated? Blood Type O NEGATIVE Antibody Screen Positive Antibody Identification Anti-D 10/07/16 10/07/16 10/07/16 06:35 06:35 06:35 WBC 9.0 RBC 3.35 L Hgb 9.6 L Hct 27.9 L MCV 83.3 L MCH 29 MCHC 34.4 RDW 12.3 Plt Count 264 MPV 9.1 L Neut % (Auto) 86.6 H Lymph % (Auto) 9.3 L [place] % (Auto) 1.7 Eos % (Auto) 0.1 Baso % (Auto) 0.1 Neut # (Auto) 7.8 H Lymph # (Auto) 0.8 L [place] # (Auto) 0.2 Eos # (Auto) 0.0 Baso # (Auto) 0.0 Immature Gran % 2.2 Nucleated RBC % 0.0 Immature Gran # 0.20 Nucleated RBCs # 0.00 INR PT Patient/Control Mix D-Dimer, Quantitative ABG pH ABG pCO2 ABG pO2 ABG HCO3 ABG Total CO2 ABG O2 Saturation ABG Base Excess FiO2 Sodium 140 Potassium 3.6 Chloride 106 Carbon Dioxide 24 Anion Gap 13.6 BUN 7 Creatinine 0.60 GFR Calculation 144 BUN/Creatinine Ratio 11.00 Glucose 120 H Calculated Osmolality 277.4 Calcium 8.6 Magnesium 2.2 Total Bilirubin < 0.39 AST 33 ALT 36 Alkaline Phosphatase 80 Troponin I B-Natriuretic Peptide Total Protein 6.3 L Albumin 2.7 L Globulin 3.6 H Albumin/Globulin Ratio 0.7 L Free T4 TSH 3rd Generation Urine Color Urine Appearance Urine pH Ur Specific [place] Urine Protein Urine Glucose (UA) Urine Ketones Urine Blood Urine Nitrate Urine Bilirubin Urine Urobilinogen Urine Leukocytes Urine RBC Urine WBC Urine WBC Clumps Ur Squamous Epith Cells Urine Bacteria Hyaline Casts Urine Mucus Ur Culture Indicated? Blood Type Antibody Screen Antibody Identification - Diagnostic Findings Procedure: Chest x-ray: report reviewed by me, CT - chest: report reviewed by me (CT chest), Ultrasound: report reviewed by me (Echo, venous ultrasound) - EKG EKG results: interpreted by me EKG shows: sinus rhythm
[2016-10-07] MEDS ORDERED: methylPREDNISolone SOD SUC 125 MG/2 ML VIAL IV ONE (19:11)
[2016-10-07] MEDS ORDERED: cefTRIAXone 1,000 MG in SODIUM CHLORIDE 0.9% 100 ML IV SCH (21:00)
[2016-10-08 07:06] LABS: Calcium 8.4 MG/DL (8.5-10.1); Osmolality,Calculated 283.1 MOS/KG (273-304); Potassium 4.3 MMOL/L (3.5-5.1)
[2016-10-08 07:22] VITALS: BP 129/80
[2016-10-08] MEDS: FUROSEMIDE 40 MG/4 ML VIAL IV SCH (08:41)
[2016-10-08] MEDS: PANTOPRAZOLE 40 MG VIAL IV SCH (08:52)
[2016-10-08] MEDS: ENOXAPARIN 40 MG/0.4 ML SYRINGE SUBCUT SCH (08:53)
[2016-10-08] MEDS: LEVOTHYROXINE 88 MCG TABLET PO SCH (08:53)
[2016-10-08] MEDS: DOCUSATE SODIUM 100 MG CAPSULE PO SCH (08:54)
[2016-10-08] MEDS ORDERED: SERTRALINE 50 MG TABLET PO SCH (09:00)
[2016-10-08] MEDS ORDERED: MONTELUKAST 10 MG TABLET PO ONE (09:09)
--- NOTE | 2016-10-08 09:15 | Discharge Summary ---
Hospital Course - Hospital Course Hospital Course: Pt admitted late Friday/ early Friday with SOB, 4 days with unremarkable delivery except it being due to PROM at 36 wks. Evaluation suggested fluid overload. Pulmonary consultation by Dr. Kim and cardiology consultation by Dr. Bedoya. Normal echo. Pt is feeling better after diuresis. Per Dr. Kim, pt's symptoms this morning are probably reflux related. He recommends Singulair for management. Will dismiss today for follow up Friday for recheck. Discharge Plan - Discharge Data Disposition: Disch To Home/Self Care Condition at Discharge: Stable Discharge Diet: regular diet Activity: other (pelvic rest x 6 wks) Hygiene: may shower Weight Bearing at Discharge: full weight bearing Driving: no restrictions (if not taking narcotics) Contact your physician if you experience:: fever over 101, Difficulty voiding, Redness or swelling, Nausea/Vomiting, Shortness of breath, Bleeding, pain uncontrolled by pain medications - Discharge Medications New Furosemide Inj [Lasix Inj] 20 mg IV BID DIURETIC vial Furosemide Tab [Lasix Tab] 20 mg PO DAILY #7 tablet Ibuprofen Tab [Motrin Tab] 800 mg PO Q8H PRN tablet PRN Reason: Pain Moderate (4-7) Continue Sertraline [Zoloft] 1 tablet PO DAILY Levothyroxine Tab [Synthroid Tab] 1 tablet PO DAILY MDD 88 mcg Cetirizine HCl [ZyrTEC Cap] 1 tablet PO DAILY - Follow Up or Referral Follow Up: Ev Taylor DO [Physician] - (Friday 2 pm) - Forms/Instructions Exam - Constitutional Vitals: Period Temp Pulse Resp BP Sys/Howell Pulse Ox Last 24 Hr 97.1 F-98.8 F 76-88 18-20 129-147/68-90 97-98 General appearance: normal weight, no acute distress - Head Head exam: Present: normal inspection, normocephalic - Eye Eye exam: Present: EOMI - Respiratory Respiratory exam: Present: clear to auscultation bilaterally - Cardiovascular Cardiovascular exam: Present: regular rate and rhythm - GI/Abdominal GI/Abdominal exam: Present: soft - Extremities Exam Extremities exam: Present: normal inspection - Neurological Exam Neurological exam: Present: alert, oriented X3 - Psychiatric Psychiatric exam: Present: normal affect, normal mood - Skin Skin exam: Present: normal color, warm Discharge Results Procedures and tests throughout hospitalization: Pending Orders 10/07/16 Urine Culture Routine 10/07/16 01:02 Blood Culture Stat 10/08/16 04:00 XR chest 2V IN AM Labs on day of discharge: Labs from last 24 hours 10/08/16 10/08/16 06:10 06:10 Sodium 142 Potassium 4.3 Chloride 108 H Carbon Dioxide 23 Anion Gap 15.3 H BUN 12 Creatinine 0.60 GFR Calculation 144 BUN/Creatinine Ratio 20.00 Glucose 119 H Calculated Osmolality 283.1 Calcium 8.4 L B-Natriuretic Peptide 134 H Preliminary micro results at discharge 10/07/16 01:02 Blood Culture - Preliminary Blood No growth at 1 day 10/07/16 01:03 Blood Culture - Preliminary Blood No growth at 1 day DS: Provider Date of admission: 10/07/16 01:07 Primary care physician: . No PCP Attending physician on admission: Ev Taylor DO Consults: 10/07/16 03:15 Consult to Physician [CONS] Routine Comment: Shortness of breath, pleural effusion Consulting Provider: Chandrakant Laird When should Consulting Provider be notified: In am 10/07/16 12:11 Consult to Physician [CONS] Routine Comment: CHF, post-; echo ordered Consulting Provider: Cardiology - [facility] Discharging clinician: Ev Taylor DO Expected date of discharge: 10/08/16
--- NOTE | 2016-10-08 10:00 | XRay Report ---
Chest, 2 views History is post CHF Comparison 10/07/2016 The heart is at the upper range normal in size There is been mild improvement of prior lobe vascular congestion with additional mild improvement of prior diffuse interstitial pulmonary opacities and effusions. Minimal bilateral interstitial opacities and tiny effusions remain without consolidation Impression: Interval improvement with mild residual pulmonary edema PROCEDURE INTERPRETED AT [facility] DEPARTMENT OF RADIOLOGY Final Report Signed by: Dr. Hali Christensen
--- NOTE | 2016-10-08 11:50 | Pulmonology Progress Note ---
Pulmonary - PN: Subj Interval history: Hira Del Angel, [facility], acting as scribe for Dr. Garcia Kim Mrs. Stone is a 26-year-old white female who we saw in initial pulmonary consultation on 10/07/2016. At that time, our impressions were: #1: Acute shortness of breath most likely secondary to acute congestive heart failure. Consider other causes. #2: 5 days. Note, vaginal delivery was "normal". #3: Anemia #4: Hypomagnesemia, now corrected #5: History of anxiety #6: Hypothyroidism #7: See past history 10/08/2016. The patient was seen today along with her and Gail Hobbs RN. The case was discussed with Dr. Ev Taylor. She has been seen in cardiology consultation by Dr. Marcelo Bedoya. That note has been reviewed. Echocardiogram showed an EF of 55-60%, trace mitral valve regurgitation, trace tricuspid valve regurgitation, and pulmonary artery pressure of 58 mmHg. She has been gently diuresed as per cardiology and chest x-ray today is markedly improved. On chest exam, the patient has a large airway wheeze. She had significant reflux with her . She also states that she has had reflux issues for a long time. Reflux precautions were discussed including, but not limited to, increasing the head of the bed, not eating late, and keeping a food diary. We have also instructed her to start Pepcid before bedtime. We will treat this large airway wheeze with Singulair 10 mg daily. All this was discussed to her understanding and she is in agreement. Doppler venograms showed no evidence of DVT. Medications have been reviewed. We added Singulair 10 mg daily today. Labs been reviewed. Creatinine 0.60, BUN 12, sodium 142, potassium 4.3, calcium 8.4; BNP 134 Microbiology has been reviewed. Blood cultures are negative at day 1. Urine cultures growing a gram-positive cocci. Exam (Progress Note) - Constitutional Vitals: Period Temp Pulse Resp BP Sys/Howell Pulse Ox Last 24 Hr 97.1 F-98.8 F 76-88 18-20 129-147/68-90 97-98 Exam: Chest... See above Heart no gallop Abdomen is nontender and nondistended; bowel sounds are positive 4 Lower extremities with nothing to suggest acute deep venous thrombophlebitis Psychiatric oriented 3, but somewhat anxious Neurologic long-term motor function is intact Plan: Start Singulair 10 mg daily. We have instructed her to take this on an empty stomach. Start Pepcid. Reflux precautions. The case again was discussed with Dr. Taylor. She is suitable for discharge from a pulmonary standpoint when Dr. Taylor feels she is stable medically. We will sign off. Please reconsult as needed. Results - Labs CBC & BMP: 10/07/16 06:35 10/08/16 06:10 Specialty Discharge - Follow Up or Referrals Follow up with: Ev Taylor DO [Physician] - 10/15/16 9:15 am (Friday 2 pm) Garcia Kim MD [Physician] -
[2016-10-08] MEDS ORDERED: MONTELUKAST 10 MG TABLET PO SCH (21:00)
== END 2016-10-08 10:30 | disposition home or self-care (01) | DRG 776 ==
LOC: N.ED 21:48 → INTOOBSV 10-07 01:07 → OBSVTOIN 10-07 01:07 → N.EDINP 10-07 01:07 → N.LD 10-07 01:07 → N.OB 10-07 02:15 → N.LD 10-07 02:45 → N.OB 10-07 07:12
PROVIDERS: ADMIT Obstetrics & Gynecology; ATTEND Obstetrics & Gynecology

== ENCOUNTER 2020-02-14 23:36 | Inpatient (IN) ==
[2020-02-15] MEDS ORDERED: BUTORPHANOL 2 MG/ML VIAL IV PRN (00:01)
[2020-02-15] MEDS ORDERED: ONDANSETRON 4 MG/2 ML VIAL IV PRN ×2 (00:01→04:06)
[2020-02-15] MEDS ORDERED: MEPERIDINE 50 MG/1 ML VIAL IM PRN (00:01)
[2020-02-15] MEDS ORDERED: ACETAMINOPHEN 325 MG TABLET PO PRN ×2 (00:01→04:06)
[2020-02-15] MEDS ORDERED: NALOXONE 0.4 MG/ML VIAL IV PRN (00:04)
[2020-02-15] MEDS ORDERED: PROMETHAZINE 25 MG/1 ML VIAL IM ONE (00:04)
[2020-02-15] MEDS ORDERED: LACTATED RINGERS 1,000 ML IV ONE (00:04)
[2020-02-15] MEDS ORDERED: diphenhydrAMINE 50 MG/1 ML VIAL IV PRN ×2 (00:04)
[2020-02-15] MEDS ORDERED: ePHEDrine 50 MG/ML VIAL IV PRN (00:04)
[2020-02-15] MEDS ORDERED: FAMOTIDINE 20 MG/2 ML VIAL IV ONE (00:04)
[2020-02-15] MEDS ORDERED: ONDANSETRON 4 MG/2 ML VIAL IV ONE (00:04)
[2020-02-15] MEDS ORDERED: hydrOXYzine HCL 25 MG/1 ML VIAL IM PRN (00:04)
[2020-02-15] MEDS ORDERED: CITRIC ACID/SODIUM CITRATE 30 ML UDCUP PO ONE (00:04)
[2020-02-15 00:27] LABS: Basophils % 0.2 % (0.0-0.8); Eosinophils # 0.1 10*3/uL (0.0-0.87); Eosinophils % 0.6 % (0.00-10.9); Hematocrit 29.3 VOL% (35.7-47.0); Hemoglobin 9.9 GM/DL (12.0-16.0); Immature Granulocytes % 0.8 %; Immature Granulocytes Absolute 0.09 #; Lymphocytes # 2.3 10*3/uL (1.4-4.0); Lymphocytes % 21.4 % (21.3-54.2); Mean Corpuscular HGB Conc 33.8 GM/DL (32-36); Mean Corpuscular Volume 80.3 FL (87-102); Mean Platelet Volume 10.6 FL (9.6-12.0); Platelet Count 190 T/CUMM (130-400); Red Blood Count 3.65 MC/CUMM (3.8-5.5); Red Cell Distribution Width 15.3 % (9.3-17.3); White Blood Count 10.6 T/CUMM (4-12)
[2020-02-15] MEDS ORDERED: fentaNYL 2 MCG/ROPIV 0.2% EPID 100 ML EPIDURAL SCH (00:30)
[2020-02-15] MEDS ORDERED: LACTATED RINGERS 1,000 ML IV SCH ×3 (00:30)
[2020-02-15 00:46] LABS: Bacteria,Urine Few /HPF (Few); Bilirubin,Urine Negative (Negative); Blood, Urine Moderate mg/dL (Negative); Calcium Oxalate Crystals,Urine Many /HPF (Few); Glucose,Urine (UA) Negative (Negative); Ketones,Urine Negative (Negative); Mucus,Urine Moderate /LPF (Occasional); Nitrite,Urine Negative (Negative); Protein,Urine 30 MG/DL; RBC,Urine 38 /HPF (0-4); Squamous Epithelial Cell,Urine Few /HPF (0-10); Urine Appearance CLOUDY (Clear); Urine Color Yellow (Yellow); Urine Specific Gravity 1.016 (1.001-1.035); WBC,Urine 73 /HPF (0-6)
[2020-02-15 00:55] LABS: Alanine Aminotransferase 28 U/L (13-56); Albumin 2.3 G/DL (3.4-5.0); Alkaline Phosphatase 131 U/L (45-117); Aspartate Amino Transferase 35 U/L (0-37); Bilirubin,Total < 0.39 MG/DL (0.2-1.0); Blood Urea Nitrogen 7 MG/DL (7-18); Calcium 8.6 MG/DL (8.5-10.1); Estimated Glom Filtration Rate 150 ML/MIN; Glucose 88 MG/DL (74-106); Osmolality,Calculated 269.8 MOS/KG (273-304); Total Protein 6.4 G/DL (6.4-8.3)
[2020-02-15] MEDS ORDERED: TRANEXAMIC ACID 1,000 MG/10 ML VIAL ONE (02:28)
[2020-02-15] MEDS ORDERED: miSOPROStoL 200 MCG TABLET ONE (02:28)
[2020-02-15] MEDS ORDERED: OXYTOCIN/LR 20 UNIT/1,000 ML BAG IV ONE ×2 (02:29→04:06)
[2020-02-15] MEDS ORDERED: CARBOPROST TROMETHAMINE 250 MCG/ML AMP IM ONE (02:29)
[2020-02-15] MEDS ORDERED: METHYLERGONOVINE 0.2 MG/1 ML AMP ONE (02:29)
[2020-02-15] MEDS ORDERED: LIDOCAINE 1% 50 ML VIAL ONE (02:30)
[2020-02-15] MEDS ORDERED: DIPH/TET/ACEL PERT BOOSTER VACCINE 0.5 ML VIAL IM ONE (04:06)
[2020-02-15] MEDS ORDERED: RHO(D) IMMUNE GLOBULIN 300 MCG SYRINGE IM ONE (04:06)
[2020-02-15] MEDS ORDERED: LANOLIN 50% CREAM 0.3 OZ TUBE TOP PRN (04:06)
[2020-02-15] MEDS ORDERED: MEASLES/MUMPS/RUBELLA VACCINE 0.5 ML VIAL SUBCUT ONE (04:06)
[2020-02-15] MEDS ORDERED: BENZOCAINE 20%/MENTHOL 0.5% SPRAY 56 GM CAN TOP PRN (04:06)
[2020-02-15] MEDS ORDERED: oxyCODONE/ACETAMINOPHEN 5-325 MG TABLET PO PRN ×2 (04:06)
[2020-02-15] MEDS ORDERED: WITCH HAZEL PADS 100/JAR TOP PRN (04:06)
[2020-02-15] MEDS ORDERED: BISACODYL 10 MG SUPP RECTAL PRN (04:06)
[2020-02-15] MEDS ORDERED: HYDROCORTISONE 2.5% RECTAL CREAM 30 GM TUBE TOP PRN (04:06)
[2020-02-15 04:16] LABS: Cord Venous Blood HCO3 19.3 MMOL/L; Cord Venous Blood PCO2 42.8 MMHG; Cord Venous Blood PO2 37.6
[2020-02-15] MEDS ORDERED: ALBUTEROL 1.25 MG/3 ML NEB RESP TX PRN (09:04)
[2020-02-15] MEDS: DOCUSATE SODIUM 100 MG CAPSULE PO SCH ×3 (10:10→21:22)
[2020-02-15] MEDS: IBUPROFEN 800 MG TABLET PO PRN (16:56)
[2020-02-16 05:41] LABS: Basophils % 0.1 % (0.0-0.8); Eosinophils % 0.5 % (0.00-10.9); Hematocrit 27.2 VOL% (35.7-47.0); Hemoglobin 8.6 GM/DL (12.0-16.0); Immature Granulocytes Absolute 0.08 #; Mean Corpuscular HGB Conc 31.6 GM/DL (32-36); Mean Corpuscular Volume 82.4 FL (87-102); Mean Platelet Volume 10.1 FL (9.6-12.0); Monocytes % 4.7 % (1.7-12.7); Neutrophils % 81.7 % (38.7-73.9); Platelet Count 157 T/CUMM (130-400); Red Cell Distribution Width 15.9 % (9.3-17.3); White Blood Count 7.9 T/CUMM (4-12)
[2020-02-16] MEDS: IBUPROFEN 800 MG TABLET PO PRN ×2 (07:39→16:35)
[2020-02-16 13:08] LABS: Basophils % 0.1 % (0.0-0.8); Eosinophils % 0.4 % (0.00-10.9); Hematocrit 26.7 VOL% (35.7-47.0); Hemoglobin 8.5 GM/DL (12.0-16.0); Immature Granulocytes % 1.5 %; Immature Granulocytes Absolute 0.14 #; Lymphocytes # 1.4 10*3/uL (1.4-4.0); Lymphocytes % 14.9 % (21.3-54.2); Mean Corpuscular HGB Conc 31.8 GM/DL (32-36); Mean Corpuscular Volume 81.9 FL (87-102); Neutrophils % 80.1 % (38.7-73.9); Platelet Count 158 T/CUMM (130-400); Red Blood Count 3.26 MC/CUMM (3.8-5.5); Red Cell Distribution Width 15.9 % (9.3-17.3); White Blood Count 9.2 T/CUMM (4-12)
[2020-02-16] MEDS ORDERED: RHO(D) IMMUNE GLOBULIN 300 MCG SYRINGE IM ONE (16:50)
[2020-02-16] MEDS: DOCUSATE SODIUM 100 MG CAPSULE PO SCH ×2 (17:26→20:42)
[2020-02-17 08:43] VITALS: BP 129/79
[2020-02-17] MEDS: DOCUSATE SODIUM 100 MG CAPSULE PO SCH (09:34)
== END 2020-02-17 11:45 | disposition home or self-care (01) | DRG 807 ==
LOC: N.LDOUT 23:36 → N.LD 23:38 → N.OB 02-15 08:38
PROVIDERS: ADMIT Obstetrics & Gynecology; ATTEND Obstetrics & Gynecology